=== PATIENT | female | born 1935 | race Caucasian/White ===

== ENCOUNTER 2023-11-14 06:58 | Observation (INO) ==
--- NOTE | 2023-10-06 10:07 | Anesthesiology Consultation ---
Date of Service October 06, 2023 Assessment & Plan (1) Encounter for pre-operative examination: - Infectious disease screening: Per assessment on 10/03/23: No known infectious disease contacts or current infectious disease symptoms. No noted recent Covid positive test result. - LBBB: Preop EKG performed 10/03/23 notes LBBB. No noted hx or comparison EKGs available. Case reviewed with Dr. Alvarado- recommend deferring to PCP if anything further needed preoperatively from their perspective. Note to PCP regarding preop EKG- Awaiting response (Dr. Zenia Yanez). Chart Review Chart Review: Patient NOT seen in Pre Admission Testing History Surgery Operation Date: 10/20/23 08:20 Proposed Procedures p Right Breast Mastectomy - Ana Joaquin DO Height/Weight Height: 4 ft 9 in Weight: 48.081 kg Allergies Allergy/AdvReac Type Severity Reaction Status Date / Time No Known Allergies Allergy Verified 10/03/23 10:56 Medications Home Medications Medication Instructions Recorded Confirmed Last Taken aspirin 81 mg capsule 81 mg PO BID 10/03/23 10/03/23 Unknown escitalopram oxalate 20 mg tablet 20 mg PO QAM 10/03/23 10/03/23 Unknown fluticasone fur. 100 mcg-umeclid 1 inh inhalation QAM 10/03/23 10/03/23 Unknown 62.5 mcg-vilant 25 mcg inhalat.powder (Trelegy Ellipta) valsartan 80 0.5 tab PO QAM 10/03/23 10/03/23 Unknown mg-hydrochlorothiazide 12.5 mg tablet Past Medical History Medical History Breast cancer, right (09/2023) COPD (chronic obstructive pulmonary disease) on Trelegy Depression Hypertension LBBB (left bundle branch block) Noted on preop EKG 10/03/23 Past Family History Family History Sister Breast cancer Brother Diabetes Past Surgical History Surgical History History of cholecystectomy Per PCP records History of lung surgery ~1950, right (r/t spontaneous pneumothorax per PCP records) Hx of abdominal surgery ~1960, r/t internal bleeding, limited details Hx of right breast biopsy (09/2023) [facility] [place] Social History Smoking Status: Never smoker Do You Dip or Chew Tobacco: No Hx Alcohol Use: No Hx Substance Use: No substance use type: does not use Testing Laboratory Results 10/03/23 WBC 8.1 H/H 13.3/39.2 PLATELETS 181 SODIUM 139 POTASSIUM 3.7 CHLORIDE 106 CO2 28.0 BUN 21.0 CREATININE 1.40 GLUCOSE 91 Electrocardiogram Date: 10/03/23 SB at 55bpm. Marked LAD. LBBB.
[~2023-11-14 06:58] MED LIST: ATROPINE SULFATE 0.1 MG/ML 10ML SYR IV PRN; DEXAMETHASONE SOD INJ 4 MG/ML VIAL ONE; LACTATED RINGER'S 1,000 ML IV SCH; LR 15ML/HR IV SCH; ONDANSETRON INJ 2 MG/ML 2 ML VIAL IV PRN; ONDANSETRON INJ 2 MG/ML 2 ML VIAL ONE; PROPOFOL IV EMULSION 10 MG/ML 20 ML VIAL IV ONE; ceFAZolin 2000MG 2,000 MG/15 ML SYR IV SCH; ePHEDrine sulfate 50 MG/ML AMP IV PRN; fentaNYL citrate PF 100 MCG/2 ML VIAL IV PRN; fentaNYL citrate PF 100 MCG/2 ML VIAL ONE
[2023-11-14] MEDS: LR 15ML/HR IV SCH (07:50)
[2023-11-14] MEDS: LACTATED RINGER'S 1,000 ML IV SCH (07:58)
[2023-11-14] MEDS ORDERED: ATROPINE SULFATE 0.1 MG/ML 10ML SYR IV PRN (08:06)
[2023-11-14] MEDS ORDERED: fentaNYL citrate PF 100 MCG/2 ML VIAL IV PRN (08:06)
[2023-11-14] MEDS ORDERED: HYDROmorphone INJ 1 MG/ML SYRINGE IV PRN (08:06)
[2023-11-14] MEDS ORDERED: ONDANSETRON INJ 2 MG/ML 2 ML VIAL IV PRN ×2 (08:06→12:32)
[2023-11-14] MEDS ORDERED: ePHEDrine sulfate 50 MG/ML AMP IV PRN (08:06)
[2023-11-14] MEDS ORDERED: fentaNYL citrate PF 100 MCG/2 ML VIAL ONE ×2 (08:40→09:38)
[2023-11-14] MEDS ORDERED: PHENYLEPHRINE 100MCG/ML 10ML SYR IV ONE (08:40)
[2023-11-14] MEDS ORDERED: LIDOCAINE 2% 2 ML VIAL/AMP(20MG/ML) INFIL ONE (08:40)
[2023-11-14] MEDS ORDERED: DEXAMETHASONE SOD INJ 4 MG/ML VIAL ONE (08:40)
[2023-11-14] MEDS ORDERED: SUGAMMADEX SODIUM 200 MG/2 ML VIAL IV ONE (08:40)
[2023-11-14] MEDS ORDERED: ROCURONIUM BROMIDE 10 MG/ML 5 ML VIAL IV ONE (08:40)
[2023-11-14] MEDS ORDERED: PROPOFOL IV EMULSION 10 MG/ML 20 ML VIAL IV ONE (08:40)
[2023-11-14] MEDS ORDERED: ONDANSETRON INJ 2 MG/ML 2 ML VIAL ONE (08:40)
--- NOTE | 2023-11-14 08:40 | History & Physical Report ---
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 The details of the procedure have been explained to her including the risks and benefits. I have made her aware that the nipple will be removed and a drain will be left at the mastectomy site. All of her questions have been answered. The consent has been obtained and is on the chart. History of Present Illness Primary Care Provider: Zenia Yanez Illness: Macarena presents to [facility] for right breast mastectomy. Detailed HPI Macarena is a very functional 88 y/o F who presents to me for further evaluation and management of a newly diagnosed, large right breast ILC spanning the 12:00 to 2:00 regions 2cm FN. Macarena presented with her son Cirilo and friend Speedy who aid her with the history due to memory challenges. Speedy notes that a lump was present prior to a fall Macarena had that turned the breast black and blue about a month or so ago and made this more noticeable to Macarena. Macarena says she has never had prior breast issues. Prior to the diagnostic imaging performed for this mass, Macarena had not had a breast mammogram for roughly 15 years or so. Outside imaging [facility] 08/28/23: Diagnostic b/l mammogram, right breast and axillary US. Heterogeneously dense. Irregular mass upper inner right breast. US 1:00 7cm FN irregular, hypoechoic mass measuring 5.7cm. BIRADS 5.3/: US guided CNB: ER/NM(+), HER2 (-) ILC, moderately differentiated, no evidence for DCIS, Ki-67 80-90%. T3 marker placed. Allergies Allergy/AdvReac Type Severity Reaction Status Date / Time No Known Allergies Allergy Verified 11/14/23 07:59 Home Medications Medication Instructions Recorded Confirmed Type aspirin 81 mg capsule 81 mg PO BID 10/03/23 11/14/23 History escitalopram oxalate 20 mg tablet 20 mg PO QAM 10/03/23 11/14/23 History fluticasone fur. 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 Hypertension COPD (chronic obstructive pulmonary disease) Cancer Medical History Breast cancer, right (09/2023) COPD (chronic obstructive pulmonary disease) on Trelegy Depression Hypertension LBBB (left bundle branch block) Noted on preop EKG 10/03/23 Surgical History History of cholecystectomy Per PCP records History of lung surgery ~1950, right (r/t spontaneous pneumothorax per PCP records) Hx of abdominal surgery ~1960, r/t internal bleeding, limited details Hx of right breast biopsy (09/2023) [facility] [place] Family History Sister Breast cancer Brother Diabetes Social History (Updated 09/25/23 @ 15:54 by Shazia Vaca RN) Smoking Status: Never smoker Second Hand Exposure: Yes ( in the past); Do You Dip or Chew Tobacco: No; Tobacco Cessation Education Requested by Patient: No Hx Alcohol Use: No Hx Substance Use: No Preferred Language: Filipino Communication Ability: Effective Field Service Supervisor Required: No Beliefs That Will Affect Care: None Current Living Situation: Alone Current Living Situation Comment: friend Angel Rey checks on her regularly Other Information That Helps Us Care for You: No Feels Safe at Home: Yes Safety Concerns: Feels Safe At This Time Diet: regular during the past year weight has: decreased > 10 lbs Assistive Devices: Glasses and Hearing Aid - Right Assistive Devices Comment: readers Review of Systems Constitutional: no fever, no chills, no sweats and no body aches Respiratory: no cough, no hemoptysis, no sputum production and no wheezing Cardiovascular: no chest pain, no dyspnea, no palpitations and no syncope Gastrointestinal: no abdominal pain, no belching, no bloating, no nausea and no vomiting Physical Exam Constitutional: average body habitus; not ill appearing, not in distress and not diaphoretic Respiratory: normal respiratory effort; no respiratory distress, no labored breathing and does not use accessory muscles Chest (Breasts): Additional Comments: Large palpable and visible mass at the upper inner right breast. Skin is intact. 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
[2023-11-14] MEDS ORDERED: ePHEDrine sulfate 50 MG/ML AMP ONE (09:24)
[2023-11-14] MEDS: BUPIVACAINE/EPINEPHRINE 0.5% MPF 1:200,000 30 ML VIAL ONE (10:17)
--- NOTE | 2023-11-14 11:18 | Operative Report ---
PG Post Operative Report Pre & Post Diagnosis Operation Date: 11/14/23 08:45 Pre-Op Diagnosis: Right Breast Cancer Post-Op Diagnosis: Right Breast Cancer I identified the patient and participated in the time-out.: Yes Procedure Operation Date: 11/14/23 08:45 Actual Procedures p Right Breast Mastectomy(Right) - Ana Joaquin DO Surgeon Ana Joaquin DO [facility] [place] No rn medical surgical Estimated Blood Loss 10 Findings See Below Large right breast mass Specimens Right breast tissue Drains 10 [place] BENITA Anesthesia Type General Complications None Indications Large, palpable right breast cancer Description of Procedure The patient was brought back to the operating room placed on the operating room table in supine position. Cardiac and oxygen monitoring was applied. The patient was administered supplemental O2 and SCDs were applied to bilateral lower extremities. General anesthesia was administered and the anterior thorax was prepped and draped in typical sterile fashion with the marking for the operative site in view. A timeout was conducted. A large breast mass located at the upper inner right breast was marked out along with the nipple areolar complex to perform a right breast mastectomy. The skin overlying a majority of the mass was removed. Local anesthetic was used to anesthetize the skin prior to making the elliptical incision with a 15 blade. Skin flaps were elevated in all directions and then the mammary tissue was dissected posteriorly to the level of the musculature. Bleeding along the way was controlled using cautery. At the axillary tail the vessels were suture-ligated using silk suture. The breast was completely elevated from the musculature and excised. The specimen was then marked with a short silk suture superiorly and a long silk suture laterally. The specimen was sent in a label container to pathology for further analysis. Hemostasis was checked and controlled using cautery. The area was anesthetized using local anesthetic. Copious irrigation was used to clean the area and dried. Hemostasis was checked for again and any areas of small oozing were controlled with cautery. A 10 [place] flat BENITA drain was inserted and the deep dermis was approximated using 3-0 Vicryl suture. A subcutaneous nuclear 4- 0 Vicryl running stitch was then used for the superficial skin. The area was wiped clean with a saline soaked lap pad and dried. The incision line was dressed with Steri-Strips, covered with dry sterile gauze and secured with an Ronak wrap. The patient tolerated the procedure well. She was awakened from anesthesia, the secure airway was removed and she was transferred to recovery in stable condition. I attest to the content of the Intraoperative Record and any orders documented therein. Any exceptions are noted below.
[2023-11-14] MEDS ORDERED: MoRPHine SULFATE 2 MG/ML CARP IV PRN (12:32)
[2023-11-14] MEDS ORDERED: MoRPHine SULFATE 4 MG/ML 1 ML CARP\\VIAL IV PRN (12:32)
[2023-11-14] MEDS ORDERED: oxyCODONE HCL IR 5 MG TAB (IMMEDIATE RELEASE) PO PRN ×2 (12:32)
[2023-11-14] MEDS: BACITRACIN OINT 14 GM TUBE ONE (12:40)
[2023-11-14] MEDS: ceFAZolin 2000MG 2,000 MG/15 ML SYR IV SCH (13:01)
--- NOTE | 2023-11-14 13:18 | Anesthesiology Progress Note ---
Date of Service November 14, 2023 Anesthesia Post Procedure Vital Signs Vital Signs: Temp Pulse Pulse Resp BP Pulse Ox O2 Del Method 11/14/23 13:02 37 C 65 16 125/66 93 Room Air 11/14/23 12:35 37 C 74 16 149/63 H 95 Room Air 11/14/23 12:15 71 14 138/69 93 Room Air 11/14/23 12:00 72 14 143/67 H 93 Room Air 11/14/23 11:50 37.1 C 76 20 145/73 H 93 Room Air 11/14/23 11:40 73 14 153/68 H 100 Room Air 11/14/23 11:30 72 16 145/69 H 100 Oxymask 11/14/23 11:20 75 16 150/69 H 98 Oxymask 11/14/23 11:15 36.1 C L 81 16 150/73 H 98 Oxymask 11/14/23 07:35 36.6 C 66 18 177/86 H 97 Room Air O2 Flow Rate 11/14/23 13:02 11/14/23 12:35 11/14/23 12:15 11/14/23 12:00 11/14/23 11:50 11/14/23 11:40 11/14/23 11:30 3 11/14/23 11:20 6 11/14/23 11:15 6 11/14/23 07:35 Transfer of Care Handoff Completed per policy Notes Mental Status: alert / awake / arousable and participated in evaluation Patient Amnestic to Procedure: Yes Nausea / Vomiting: adequately controlled Pain: adequately controlled Airway Patency, RR, SpO2: stable & adequate BP & HR: stable & adequate Hydration State: stable & adequate Anesthetic Complications: no major complications apparent and Pt Satisfied with anesthetic care
--- NOTE | 2023-11-14 13:37 | Hospitalist Consultation ---
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: s/p right breast mastectomy pain control (2) Hypertension: stable continue home meds (3) COPD (chronic obstructive pulmonary disease): no exacerbation continue Trelegy (4) LBBB (left bundle branch block): chronic, no chest pain (5) Depression: continue home meds History of Present Illness Reason for Consultation: medical management Attending Physician: Ana Joaquin DO History of Present Illness 88 yo female with h/o COPD, HTN, depression, chronic LBBB , breast cancer, underwent right mastectomy, tolerated surgery well, no complications, she is sedated, looks comfortable, no chest pain or SOB, denies nausea, vomiting. Allergies Allergy/AdvReac Type Severity Reaction Status Date / Time No Known Allergies Allergy Verified 11/14/23 07:59 Home Medications Medication Instructions Recorded Confirmed Type aspirin 81 mg capsule 81 mg PO BID 10/03/23 11/14/23 History escitalopram oxalate 20 mg tablet 20 mg PO QAM 10/03/23 11/14/23 History fluticasone fur. 100 mcg-umeclid 1 inh inhalation QAM 10/03/23 11/14/23 History 62.5 mcg-vilant 25 mcg inhalat.powder (Trelegy Ellipta) valsartan 80 0.5 tab PO QPM 10/03/23 11/14/23 History mg-hydrochlorothiazide 12.5 mg tablet (Diovan HCT) Patient History Medical History LBBB (left bundle branch block) Noted on preop EKG 10/03/23 Depression Hypertension COPD (chronic obstructive pulmonary disease) on Trelegy Breast cancer, right (09/2023) Surgical History (Updated 11/14/23 @ 12:01 by Mitra Waldrop RN) H/O right mastectomy (11/14/23) Right Breast Mastectomy(Right) - Ana Joaquin DO History of cholecystectomy Per PCP records Hx of right breast biopsy (09/2023) [facility] [place] Hx of abdominal surgery ~1960, r/t internal bleeding, limited details History of lung surgery ~1950, right (r/t spontaneous pneumothorax per PCP records) Family History Sister Breast cancer Brother Diabetes Social History (Updated 09/25/23 @ 15:54 by Shazia Vaca RN) Smoking Status: Never smoker Second Hand Exposure: Yes ( in the past); Do You Dip or Chew Tobacco: No; Tobacco Cessation Education Requested by Patient: No Hx Alcohol Use: No Hx Substance Use: No Preferred Language: Central African Communication Ability: Effective Supervisor Yard Required: No Beliefs That Will Affect Care: None Current Living Situation: Alone Current Living Situation Comment: friend Angel Rey checks on her regularly Other Information That Helps Us Care for You: No Feels Safe at Home: Yes Safety Concerns: Feels Safe At This Time Diet: regular during the past year weight has: decreased > 10 lbs Assistive Devices: Glasses and Hearing Aid - Right Assistive Devices Comment: readers Review of Systems Review of Systems: All systems reviewed & are unremarkable except as noted in HPI & below Physical Exam Physical Exam: head atraumatic, normocephalic neck is supple, no JVD, no carotid bruit lungs clear to auscultation heart S1S2 regular, no murmurs, gallops abdomen soft, nt, nd, BS present extremities no clubbing, no cyanosis neuro sedated, easily arousable , no focal deficit Results & Data Results & Data Vital Signs (Past 12 Hours) Vital Signs Temp Pulse Pulse Resp BP Pulse Ox O2 Del Method 11/14/23 13:26 36.8 C 71 15 130/69 93 Room Air 11/14/23 13:02 37 C 65 16 125/66 93 Room Air 11/14/23 12:35 37 C 74 16 149/63 H 95 Room Air 11/14/23 12:15 71 14 138/69 93 Room Air 11/14/23 12:00 Room Air 11/14/23 12:00 72 14 143/67 H 93 Room Air 11/14/23 11:50 37.1 C 76 20 145/73 H 93 Room Air 11/14/23 11:40 73 14 153/68 H 100 Room Air 11/14/23 11:30 72 16 145/69 H 100 Oxymask 11/14/23 11:20 75 16 150/69 H 98 Oxymask 11/14/23 11:15 36.1 C L 81 16 150/73 H 98 Oxymask 11/14/23 07:35 36.6 C 66 18 177/86 H 97 Room Air O2 Flow Rate 11/14/23 13:26 11/14/23 13:02 11/14/23 12:35 11/14/23 12:15 11/14/23 12:00 11/14/23 12:00 11/14/23 11:50 11/14/23 11:40 11/14/23 11:30 3 11/14/23 11:20 6 11/14/23 11:15 6 11/14/23 07:35 PG Care Time/CCT Total # of Minutes Spent Total Time Spent with Patient: Total time spent is greater than 50% in coordination of care (as documented) at patient's floor/unit and/or counseling patient: Coding Level of Care Code 89962 IN/OBS CONSULT LVL 4,60M Diagnoses Malignant neoplasm of upper-inner quadrant of right breast in female, estrogen receptor positive C50.211; Z17.0 Estrogen receptor status: positive Hypertension I10 COPD (chronic obstructive pulmonary disease) J44.9 LBBB (left bundle branch block) I44.7 Depression F32.A (1) 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
[2023-11-14] MEDS: ACETAMINOPHEN 1,000 MG/100 ML VIAL IV SCH (13:48)
[2023-11-14] MEDS ORDERED: VALSARTAN/HCTZ 80/12.5MG TAB PO SCH (21:00)
[2023-11-14] MEDS ORDERED: VALSARTAN 80 MG TAB PO SCH (21:00)
[2023-11-14] MEDS ORDERED: hydroCHLOROthiazide 25 MG TAB PO SCH (21:00)
[2023-11-14] MEDS: ACETAMINOPHEN 10MG/ML Custom 650 MG in EMPTY BAG 0 ML IV SCH (21:38)
[2023-11-15 07:30] LABS: Basophils # (auto) 0.03 K/uL (0.00-0.20); Basophils % (auto) 0.2 %; Eosinophils # (auto) 0.01 K/uL (0.00-0.50); Eosinophils % (auto) 0.1 %; Hematocrit (blood only) 36.5 % (37.0-47.0); Hemoglobin 12.2 g/dl (12.0-16.0); Immature Granulocytes # (auto) 0.06 K/uL (0.01-0.20); Immature Granulocytes % (auto) 0.5 %; Lymphocytes # (auto) 1.48 K/uL (1.20-3.40); Lymphocytes % (auto) 12.1 %; Mean Corpuscular Hemoglobin 31.7 pg (25.0-34.0); Mean Corpuscular Hgb Conc 33.4 g/dL (32.0-36.0); Mean Corpuscular Volume 94.8 fL (80.0-100.0); Mean Platelet Volume 10.3 fL (9.4-12.4); Monocytes # (auto) 1.12 K/uL (0.11-0.59); Monocytes % (auto) 9.1 %; Neutrophils # (auto) 9.57 K/uL (1.40-6.50); Platelet Count 164 K/uL (130-400); RDW Standard Deviation 41.4 fL (36.4-46.3); Red Blood Count 3.85 M/uL (4.20-5.40); White Blood Count 12.27 K/ul (4.8-10.8)
[2023-11-15] MEDS: UMECLIDINIUM/VILANTEROL 62.5/25MCG 7 PUFFS/INHALER INH SCH (07:40)
[2023-11-15] MEDS: ESCITALOPRAM OXALATE 20 MG TAB PO SCH (07:40)
[2023-11-15] MEDS: FLUTICASONE FUROATE 100MCG 14 PUFFS/INHALER INH SCH (07:41)
--- NOTE | 2023-11-15 08:16 | Hospitalist Progress Note ---
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 Suspect reactive from surgery given afebrile. Denied any urinary symptoms/fever/chills. Does have some SOB w/ activity but COPD at baseline and on trelegy but on hospital formulary and can resume at dc. Lung exam clear/no sputum production and 94% on RA. Incentive spirometry encouraged (bag was in room with patient, unopened-- I opened and had her use/show how to properly use and encouraged use at discharged/take the incentive spirometer with her). Instructed to return with any fever/chills/worsened cathi rtness of breath Outpt f/u PCP/surgery at co, f/u pathology (confirmed w/ primary was sent- they are to fu) Planned for dc today per patient/family/primary service. F/u outpatient providers/medical oncology recommended Hospitalist service will sign off at this time Please call with any questions/concerns. (2) Hypertension: Plan: stable but borderline BPs last evening and placed PM HCTZ and valsartan on hold to prevent hypotension/ALEXSANDER BP 127/61 this morning, PCP note August 2023 w/ BUN/Cr 19/1.4 and appears Cr 1.3 around her baseline and could resume home meds this evening however patient reports taking in AM but wanting to go/discharge in place and can take when she returns home F/u PCp (3) COPD (chronic obstructive pulmonary disease): Plan: no exacerbation continue Trelegy/hospital equivalent Some SOB w/ exertion reported but to resume home trelegy when she gets home. No fever/chills or sputum production reported Showed/encouraged incentive spirometer as above 94% on RA prior to cc (4) LBBB (left bundle branch block): Plan: noted pre-op, see by cardiology and had nuclear stress testing which was NORMAL. No ischemia/infarct noted. LV systolic function normal, EF 67% (5) Depression: Plan: continue home escitalopram Plan patient to be discharged today per primary service -- messaged primary about confirming pathology prior to dc as ordered/sent per surgeon F/u PCP/surgery/oncology at dc Hospitalist service will sign off at this time. Please call with any questions/cocerns. Admission and Anticipated Discharge Date Admission Date: November 14, 2023 Supervising Physician Co-Signing Physician Notes The patient was not seen by me. The chart was reviewed. Case discussed with URIEL Gloria. Agree with assessment and plan Subjective Evaluated this morning, family in room. Got up to use bathroom, some shortness of breath but COPD at baseline and on Trelegy. Getting hospital formulary but discussed can resume home therapy at home. Eating/drinking alright, pain controlled. No fever/chills. Opened incentive spirometer and showed how to use, encouraged continued use at dc. BENITA in place. Planning for dc this afternoon. Questions/concerns addressed at this time. Physical Exam Physical Exam: 88yo female, frail appearing, sitting up in bed, family in room, NAD head atraumatic, normocephalic, mmm, trachea midline Chest: s/p R mastectomy, dressing/binder in place, BENITA draining appropriately Resp: even/unlabored, slightly diminished in the bases, no w/r, on room air 94% cv; RRR, no significant m/r/g, no pitting edema/calf tenderness GI: +BS, soft/NT Psych: AOx3, cooperative with exam Results & Data Results & Data Vital Signs (Past 12 Hours) Vital Signs Temp Pulse Resp BP Pulse Ox O2 Del Method 11/15/23 08:12 36.8 C 64 16 127/61 94 Room Air 11/15/23 03:20 36.9 C 62 16 115/69 96 Room Air 11/14/23 22:45 36.6 C 58 L 16 110/69 95 Room Air 11/14/23 20:45 Room Air Laboratory Results 11/15/23 Range/Units 06:37 WBC 12.27 H (4.8-10.8) K/ul RBC 3.85 L (4.20-5.40) M/uL Hgb 12.2 (12.0-16.0) g/dl Hct 36.5 L (37.0-47.0) % MCV 94.8 (80.0-100.0) fL MCH 31.7 (25.0-34.0) pg MCHC 33.4 (32.0-36.0) g/dL RDW Std Deviation 41.4 (36.4-46.3) fL RDW Coeff of Sammy 12.0 (11.5-14.5) % Plt Count 164 (130-400) K/uL MPV 10.3 (9.4-12.4) fL Immature Gran % (Auto) 0.5 % Neut % (Auto) 78.0 % Lymph % (Auto) 12.1 % [place] % (Auto) 9.1 % Eos % (Auto) 0.1 % Baso % (Auto) 0.2 % Neut # (Auto) 9.57 H (1.40-6.50) K/uL Lymph # (Auto) 1.48 (1.20-3.40) K/uL [place] # (Auto) 1.12 H (0.11-0.59) K/uL Eos # (Auto) 0.01 (0.00-0.50) K/uL Baso # (Auto) 0.03 (0.00-0.20) K/uL Immature Gran # (Auto) 0.06 (0.01-0.20) K/uL Sodium 137 (136-145) mmol/L Potassium 4.0 (3.5-5.1) mmol/L Chloride 104 (98-107) mmol/L Carbon Dioxide 29 (21-32) mmol/L Anion Gap 4 (3-11) BUN 26 H (6-23) mg/dl Creatinine 1.30 H (0.6-1.2) mg/dl Est Cr Clr Drug Dosing 20.4 ml/min Est GFR ( Amer) 42.7 ml/min Est GFR (Non-Af Amer) 36.9 ml/min BUN/Creatinine Ratio 20.0 (10-20) Glucose 116 H (70-99(Fasting)) mg/dl Calcium 8.8 (8.6-10.3) mg/dl Magnesium 1.9 (1.7-2.4) mg/dl Total Bilirubin 1.0 (0.2-1.0) mg/dl AST 13 (13-39) U/L ALT 5 L (7-52) U/L Alkaline Phosphatase 46 (34-104) U/L Total Protein 6.1 (6.0-8.3) gm/dl Albumin 3.4 (3.4-5.0) gm/dl Globulin 2.7 (2.5-4.0) gm/dl Albumin/Globulin Ratio 1.3 (0.9-2) PG Care Time/CCT Total # of Minutes Spent Total Time Spent with Patient: Total time spent is greater than 50% in coordination of care (as documented) at patient's floor/unit and/or counseling patient: Coding Level of Care Code 97373 SUB INP/OBS CARE 2/35MIN Diagnoses Malignant neoplasm of upper-inner quadrant of right breast in female, estrogen receptor positive C50.211; Z17.0 Estrogen receptor status: positive Hypertension I10 COPD (chronic obstructive pulmonary disease) J44.9 LBBB (left bundle branch block) I44.7 Depression F32.A (1) 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
[2023-11-15 08:32] LABS: Albumin Level 3.4 gm/dl (3.4-5.0); Calcium 8.8 mg/dl (8.6-10.3); Magnesium 1.9 mg/dl (1.7-2.4)
[2023-11-15 08:38] LABS: Albumin Globulin Ratio 1.3 (0.9-2); Creatinine Clr Calc Pharmacy 20.4 ml/min; Est GFR (African American) 42.7 ml/min; Est GFR (Non-African American) 36.9 ml/min; Globulin 2.7 gm/dl (2.5-4.0); Total Protein 6.1 gm/dl (6.0-8.3)
[2023-11-15] MEDS ORDERED: NON-FORMULARY MEDICATION (Fluticasone-Umeclidin-Vilanter [Trelegy Ellipta] 100-62.5-25 mcg INH SCH (09:00)
--- NOTE | 2023-11-16 13:22 | Discharge Summary ---
Date of Service November 16, 2023 Admission HPI Per Admitting Provider Illness: Macarena presents to [facility] for right breast mastectomy. Detailed HPI Macarena is a very functional 88 y/o F who presents to me for further evaluation and management of a newly diagnosed, large right breast ILC spanning the 12:00 to 2:00 regions 2cm FN. Macarena presented with her son Cirilo and friend Speedy who aid her with the history due to memory challenges. Speedy notes that a lump was present prior to a fall Macarena had that turned the breast black and blue about a month or so ago and made this more noticeable to Macarena. Macarena says she has never had prior breast issues. Prior to the diagnostic imaging performed for this mass, Macarena had not had a breast mammogram for roughly 15 years or so. Outside imaging [facility] 08/28/23: Diagnostic b/l mammogram, right breast and axillary US. Heterogeneou sly dense. Irregular mass upper inner right breast. US 1:00 7cm FN irregular, hypoechoic mass measuring 5.7cm. BIRADS 5.3/: US guided CNB: ER/MO(+), HER2 (-) ILC, moderately differentiated, no evidence for DCIS, Ki-67 80-90%. T3 marker placed. Principal Diagnosis Right breast caner Discharge Exam Constitutional not ill appearing, not in distress and not diaphoretic afebrile Respiratory normal respiratory effort; no respiratory distress, no labored breathing and does not use accessory muscles Chest (Breasts) Additional Comments: Surgical dressings clean and intact. BENITA drain with a small amount of dark blood drainage and serosanguinous in the tubing. 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 Admitted for overnight observation [place] well in the am without NV, F/C or pain Ready for D/C home with family and follow up with me in the office. Total Time Total Time Spent Total Time Spent (In Minutes): 30 Discharge Plan Discharge Items Patient Disposition: Home - Self-Care Reason For Visit: Right Breast Cancer Discharge Diagnosis: Right Breast Mastectomy Activity: As commented below Lifting: No more than 5 pounds Bathing: Keep incision dry Bathing Comment: sponge bath until cleared by your surgeon ; must keep your incisions dry Exercise/Sports: Wait until after follow-up appointment Driving/Machine Use: no driving until cleared by the surgeon Non-emergency contact: Surgeon Call non-emergency contact if: you have any medication questions, your pain is worsening, your pain is unusual for you, your temperature is above 101, your wound has increased redness, your wound has increased drainage and your wound pain has increased Follow-up/Referrals: Zenia Yanez [Primary Care Provider] - Ana Joaquin DO [Physician] - (call office for a follow up in 2 weeks ) Diet: Regular Addtl Attending Provider Instructions: You have an ERIK bandage with dry dressings in place. You may remove ERIK bandage and gauze dressings on 11/17/23. Leave the small white strips (Called steri strips) on over your incisions. These will tend to fall off on their own within 10 days. You may replace gauze for comfort and ERIK bandage thereafter -OR- wear a compressive bra/surgical bra until your follow up appt. You may purchase Tylenol over the counter if needed for additional pain control over the next few days. Take per manufacturers instructions Avoid NSAIDS such as Ibuprofen until follow up Please apply Ice to surgical area on for 15 minutes off for 15minutes on over the next 3 days. After 3 days you may use warm compresses for comfort. Care for your drains as you have been taught, and keep a log of the output. Once output has been less than 30cc for 2 consecutive days you may call the office to discuss removal YOU MAY RESUME ASPIRIN ON , November 20, 2023 Pending Studies at Discharge: Yes Studies:: surgical pathology Stand-Alone Forms: [facility], Pain - Opioid Pain Management Medications and DC Order Prescriptions: New oxycodone 5 mg tablet 5 - 10 mg PO .[id number] PRN (Reason: pain, for initial therapy, max 6 tabs per day) Qty: 15 0RF Continued valsartan-hydrochlorothiazide [Diovan HCT] 80-12.5 mg Tablet 0.5 tab PO QPM escitalopram oxalate 20 mg tablet 20 mg PO QAM Trelegy Ellipta 100-62.5-25 mcg blister with device 1 inh INHALATION QAM Held aspirin 81 mg Capsule 81 mg PO BID Hold Instructions: Resume on 11/20/23. Discharge Orders: Discharge Order (Routine); Ordered 11/15/23 Ordered By: Gloria Wade/Other Patient Handouts: Mastectomy: After Surgery, Mastectomy: Follow-Up Care, Sammy Aldana Drain Tube Dc Admission Data Admit Date/Time: 11/14/23 11:23 Attending Provider: Ana Joaquin Admit Provider: Ana Joaquin Primary Care Provider: Zenia Yanez Other Providers: Tirso Charles; Anne Browning; Reji Hayes; Yandel Milian; Flaquito Drummond; Phil Wagoner; Viridiana Izaguirre; Shayla Partida; Giselle Rivero; Enrique Mayorga; Cash Kidd; Gloria Herrera; Prasad Stroud; Reji Mcguire; Denny Peterson; Simran Hargrove; Crys Ng; Crys Gimenez; Xi Ford; Haile Ace; Riddhi Bernardo; Jonathan Dean; Patrick Peters; Arielle Fu; Lydia Wood; Kristan Olivas; Ulysses Rendon; Rolando Alston; Yandel Jefferson; Flaquito Shelton; Tawanna Cortez Other Interventions: Discharge Summary Assessment (RN) Last Done: 11/15/23 11:40 Coding Level of Care Code 76200 OBS Care - Discharge Diagnoses Malignant neoplasm of upper-inner quadrant of right breast in female, estrogen receptor positive C50.211; Z17.0 Estrogen receptor status: positive
== END 2023-11-15 12:27 | disposition home or self-care (01) ==
LOC: 3E 06:58 → ASU 06:58